=== PATIENT | female | born 1950 | race Caucasian/White ===

== ENCOUNTER → 2021-08-22 12:51 | Outpatient (BNVA) | payer MEDICARE, SELFPAY | PROVIDERS: Visit Provider Emergency Medicine | DX: S69.92XA Unspecified injury of left wrist, hand and finger(s), initial encounter (principal); W19.XXXA Unspecified fall, initial encounter; M19.032 Primary osteoarthritis, left wrist | CPT/HCPCS: 73110 ==

== ENCOUNTER 2024-07-29 14:47 | Outpatient (CLI) | payer MEDICARE, OTHER, SELFPAY | END 2024-07-29 14:48 | disposition home or self-care (01) | LOC: SOT 14:48 | PROVIDERS: PCP Nurse Practitioner Family; Visit Provider Student in an Organized Health Care Education/Training Program | DX: Z46.89 Encounter for fitting and adjustment of other specified devices (principal); S52.021D Displaced fracture of olecranon process without intraarticular extension of right ulna, subsequent encounter for closed fracture with routine healing; W18.39XD Other fall on same level, subsequent encounter | CPT/HCPCS: 97760; L3763 ==

== ENCOUNTER 2024-08-01 12:29 | Day surgery (SDC) | payer MEDICARE, OTHER, SELFPAY ==
[2024-08-01] VITALS (14 sets, daily range): BP systolic 107–143; BP diastolic 63–84; PULSE 72–87; RESP 14–18; TEMP 36.2–36.9; O2SAT 90–99; BMI 38.4
--- NOTE | 2024-08-01 07:27 | XR_ITS ---
WS: [id number] C-ARM RADIOGRAPHS RIGHT ELBOW; 4 IMAGES HISTORY: RT ELBOW ORIF; OR PICS COMPARISON: Radiograph 07/23/2024 Intraoperative pinning and screw fixation of the olecranon fracture which is now in good position and alignment. XR/XR elbow RT 2V 92015 IMPRESSION: ORIF RIGHT olecranon fracture.
--- NOTE | 2024-08-01 13:00 | ECG_ITS ---
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
[2024-08-01] MEDS: acetaminophen 1,000 MG/100 ML PIGGYBACK 400 MG IV (13:32)
[2024-08-01] MEDS: sodium chloride 0.9% 1,000 ML 30 ML IV (13:33)
[2024-08-01] MEDS: ketorolac 30 mg/mL INJ IVP (13:48)
--- NOTE | 2024-08-01 14:13 | SUR.PREOP ---
13:58 RIGHT SUPRA CLAVICULAR NERVE BLOCK PERFORMED BY DOCTOR Urbano, USING 0.5% ROPIVACAINE AND 4mg DECADRON. PT ON MRI CT TECH.TOLERATED PROCEDURE WELL.
--- NOTE | 2024-08-01 14:57 | W.PM.OPSUD ---
Surgery/Procedure H&P Update DATE OF PROCEDURE: August 01, 2024 DATE H&P PERFORMED: 07/29/24 H&P UPDATE INFORMATION: I have reviewed H&P completed within last 30 days, I have examined patient prior to procedure and No changes to prior documentation PREOP DIAGNOSIS: Displaced right olecranon fracture intra-articular PRIMARY INDICATION FOR PROCEDURE: Displaced right olecranon fracture intra-articular PLANNED PROCEDURE: Operation Date: 08/01/24 14:35 Proposed Procedures p ORIF Elbow ORIF Olecranon Fracture(Right) - Yogi Richter DO
--- NOTE | 2024-08-01 16:33 | ANES.PREANE2 ---
Pre-Anesthetic Assessment Height/Weight: Height 1.57 m Weight 95.254 kg Temp Pulse Resp BP Pulse Ox O2 Del Method 98.5 F 73 16 126/72 96 Room Air 08/01/24 12:52 08/01/24 14:20 08/01/24 14:20 08/01/24 14:10 08/01/24 14:20 08/01/24 14:20 Preop Diagnosis: Displaced right olecranon fracture intra-articular Operation Date: 08/01/24 14:35 Proposed Procedures p ORIF Elbow ORIF Olecranon Fracture(Right) - Yogi Rober, Familial anesthetic complications: None Was Beta Vaishali taken within 24 hours: N/A Was Clonidine taken within 24 hours: N/A Last intake: Intake Last Liquid Date 08/01/24 Last Liquid Time 07:50 Last Solid Date 07/31/24 Last Solid Time 19:00 Social No alcohol and No tobacco Exam alert, oriented x 3, clear to auscultation bilaterally and regular rate & rhythm Airway Mallampati: Class II CV/HEM Hypertension Metabolic Hyperlipidemia Anesthetic Plan ASA status: 2 Anesthesia: General and Regional (specify below) Risk of > 500 ml blood loss (7ml/kg in children): No Medications/Allergies Home Medications ?Medication ?Instructions ?Recorded ?Confirmed ?Last Taken ?Type lisinopril 40 mg PO DAILY 08/22/21 08/01/24 07/29/24 History metoprolol 50 mg PO DAILY 08/22/21 08/01/24 08/01/24 History Custom Posterior Long Arm Splint #1 ea 07/29/24 07/29/24 Unknown Rx chlorthalidone 25 mg tablet 25 mg PO DAILY 07/29/24 08/01/24 07/29/24 History meloxicam 15 mg tablet 15 mg PO DAILY 07/29/24 08/01/24 07/29/24 History pravastatin 80 mg tablet 80 mg PO DAILY 07/29/24 08/01/24 07/29/24 History hydrocodone 7.5 mg-acetaminophen 1 tab PO Q6H PRN pain #20 tabs 08/01/24 Unknown Rx 325 mg tablet Allergies Allergy/AdvReac Type Severity Reaction Status Date / Time No Known Allergies Allergy Verified 08/01/24 12:46 Current Medications Generic Name Dose Route Start Last Admin Trade Name Freq PRN Reason Stop Dose Admin Sodium Chloride 1,000 mls @ 30 mls/hr 08/01/24 12:45 08/01/24 13:33 Sodium Chloride 0.9% IV 08/02/24 12:44 30 mls/hr .Q24H KIM Administration PFSH Anesthesia Social History Smoking and tobacco/nicotine status: never used tobacco/nicotine Anesthesia Procedures Nerve Block Nerve Block 1: Main Anesthesia: general anesthesia Time Out Performed: Yes Consent: requested by attending/covering physician, from patient, from other, risks and benefits reviewed and patient agrees to proceed Nerve block location: supraclavicular (R) Anesthesia monitors applied: pulse oximetry, EKG, BP cuff and oxygen Nerve block position: semi sitting Anesthetic Used: ropivicaine 0.5% (30 ml) and with decadron (4 mg) Ultrasound used to: recognize landmarks, visualize and ID brachial plexus and in supraclavicular region Nerve Stimulator Used?: No Interscalene/Femoral BLK: 4 stimuplex 21 g needle used for position and inplane approach, visualize local anesthetic spread and no vascular puncture identified Injection: neg aspiration of heme Patient Tolerated Procedure: well and no complications Complications: none
[2024-08-01] MEDS: ceFAZolin 2,000 MG in sodium chloride 0.9% (plus) 50 ML 100 MG IV (18:10)
--- NOTE | 2024-08-01 20:16 | P.BOP_ITS ---
Date of Procedure: [August 01, 2024] Surgeon: [Dr. Richter DO] Industrial Engineering Professor(s): [Florencio Richter PA-C] Procedure(s) performed: [Right olecranon open reduction and internal fixation] Findings of the procedure(s): [Right olecranon displaced fracture. procedure went well and as planned. Estimated blood loss: [10 ml] Specimen(s) removed: [n/a] Post-operative diagnosis: [Right olecranon displaced fracture]
--- NOTE | 2024-08-01 20:22 | PM.PACU ---
PACU note Narrative: Patient is a 74-year-old female just underwent a right elbow olecranon ORIF. Patient transferred to PACU in stable condition. Pain is well controlled. shoulder Dressing on , dry and in place. Patient's operative arm is in a shoulder sling and splint. Patient is awake and alert and able to respond to my questions accordingly. Patient's fingers are warm with good perfusion. Patient can wiggle fingers. normal cap refill under 2 seconds. . Unable to perform any further assessment of sensory motor function due to residual block. Exam: awake Disposition: discharged
--- NOTE | 2024-08-01 20:27 | P.OP_ITS ---
Operative Report Date of procedure: August 01, 2024 Pre-op diagnosis: Right elbow olecranon fracture displaced, intra-articular Post-op diagnosis: Same Post-op findings: See operative report narrative Procedure done: Right elbow olecranon fracture open reduction internal fixation Implants: [place] olecranon plate 3 hole anatomic right Combination of 3.5 locking and nonlocking screws Arthrex #2 FiberWire Surgeon: Yogi Richter DO [employer] Clerk: Florencio Richter PA-C: PA was necessary for assistance in this case with arm positioning to execute the procedure, retraction and protection of neurovascular structures, assistance with fracture reduction holding reduction as well as fracture fixation as well as to assist with wound closure and dressing and splint application. Anesthesia: General Estimated blood loss: 10 mL 39 minutes IV fluids: 1300 mL Urine output: None Complications: None Findings: See op note Condition: stable Disposition: same day Brief History: Patient is a 74-year-old female who sustained a fall directly onto her right elbow. She has a displaced right elbow olecranon process fracture. This is intra-articular in nature and displaced given the tricep attachments to this. We talked about her options moving forward as far as continued nonoperative versus operative invention. This point time she does have a small abrasion which she treated conservatively with just daily Vaseline gauze changes she has been in a posterior long-arm splint. At this point in time for goals of earlier mobilization as well as anatomic fixation and joint reduction patient through shared decision-making elects proceed with surgical intervention. All questions have been answered at this time. We detailed the ins and outs procedure the risk benefits complication alternatives of surgery and through shared decision making patient like to proceed with surgical intervention for a right elbow olecranon fracture open reduction internal fixation. All questions answered at this time. Consent was reviewed and signed with patient in the preop area. Procedure: Patient seen eval in the preoperative holding area. Consent was reviewed and signed with patient. Correct extremity was then subsequently marked. Patient had healed the abrasion over the elbow and this will not be incorporated into patient's preplanned incision site. At this point in time patient was seen evaluated by anesthesia patient subsequently underwent a right upper extremity nerve regional block per the anesthesia apartment once cleared for surgery patient was taken back to the operative suite. Patient was then brought to the OR and placed on hospital bed in supine position all bony problems well-padded patient with pelvis secured to the bed patient then subsequently underwent anesthesia per the anesthesia apartment. Once properly anesthetized the patient was placed into a lateral decubitus position with beanbag positioner. We had a sterile bump that was going to be placed over the patient's chest and draped the right arm over. We utilized an armboard for the left arm and axillary roll was placed patient was appropriately secured to the bed. Once we had satisfactory position the bed was turned 90 degrees and we confirmed we had good x-ray images and visualization of the olecranon fracture. At this point in time a nonsterile tourniquet was applied to the right upper arm. The right upper extremity is then prepped and draped standard orthopedic fashion. Final timeout performed. Patient received appropriate preoperative antibiotics. Esmarch tourniquet was used exsanguinate right upper extremity tourniquet was insufflated to 250 mmHg. A curvilinear incision was made centering over the fracture site curving around the just the medial aspect of the tip of the olecranon as well as to curve away from patient's dorsal and radial abrasion she originally had this now well- healed. Incision was made through skin and subcutaneous tissue switched to lightly dissection scissors and then maintained exact hemostasis throughout. I mobilized and created full-thickness skin flaps came down directly over the olecranon the fracture site. At this point in time I subsequently utilized a blunt periosteal elevator to mobilize the preplanned site for the olecranon plate this was directly and a smaller piece of olecranon process. As a result there was not significant comminution throughout the rest of the proximal ulna. At this point in time came down directly over the fracture site and its triceps attachment to this. I utilized curette rongeur as well as sharp scalpel excision to debride out the fracture site and evacuated of all fracture hematoma and debris. I then subsequently open book the fracture site and irrigated out the joint. Small piece of loose body was subsequently removed. At this point in time I then subsequently utilized a sharp scalpel incision and then split the tricep tendon and peeled this off the periosteum just enough to allow the plate the rest of the triceps was all left intact plan was to utilize suture augmentation to increase the construct strength. At this point in time I then subsequently utilized an Arthrex #2 FiberWire suture and whipstitch this proximally and then subsequently distal with 2 limbs coming out. This now allowed for control of my fracture fragment as well as to be tied into the p late. I then subsequently selected a Counselor anatomic right olecranon plate 3 hole. This had good positioning as well as for fixation proximal and distal. At this point in time I utilized a dental pick maintain reduction with arm positioning and a dental pack I then placed a K wire across the fracture site to hold reduction and then once this was completed I then brought in the olecranon plate that I had selected this was then secured up against the bone I subsequently drilled and placed a locking screw on the proximal fracture fragment and then while plate was locked to this fragment subsequently drilled eccentrically and had compression in the oblong hole and subsequently drilled measured and placed a 3.5 mm cortical screw distally which then compressed the plate to bone as well as compressed fracture site at this point time I brought in fluoroscopic imaging to confirm appropriate plate placement fracture reduction and satisfactory screw lengths. At this point in time I then subs equently placed a homerun locking screw which also was drilled measured appropriate length locking screw was then placed down the intramedullary olecranon shaft traversing across fracture site. I then subsequently placed additional locking and nonlocking screws throughout the construct both proximally and distally which increase construct strength. I then subsequently passed the suture through the suture eyelets of the plate and then subsequently tied the tricep tendon down directly over the plate and had excellent fixation. At this point in time I then took the elbow through range of motion which had smooth elbow range of motion no catching or clicking noted and then subsequently brought in fluoroscopic imaging for final x-ray images which showed satisfactory reduction and congruency of the olecranon process fracture with stable fixation elbow was taken through range of motion and hardware was stable with stable fracture reduction and fixation. This completed my construct tourniquet was deflated hemostasis was satisfactory thorough irrigation performed. I then subsequently closed in layered fashion of 0 Vicryl suture to again reapproximate the triceps tendon as well as the deep periosteal tissue over the olecranon plate and then subsequently closed 2-0 Vicryl suture and kwaku for the skin. I then placed Xeroform over the incision site this was then placed with 4 x 4's ABDs Curlex and a soft roll and a bulky posterior long-arm splint was then applied. Patient was then placed in a sling. Patient was then awakened from anesthesia taken recovery in stable condition. Disposition: Patient taken recovery in stable condition, will receive appropriate discharge instruction as well as pain medication postoperatively. Will follow-up in orthopedic office in 2 weeks. Patient and family understand agree with current plan. All questions answered. Nonweightbearing to the right upper extremity as well as maintain splint until follow-up with no active range of motion of the elbow. All questions answered.
--- NOTE | 2024-08-01 21:45 | ANE.PACU2 ---
Inpatient post-anesthesia follow up: Airway intact: Yes Vital signs: Temperature 97.9 F Pulse Rate 87 Respiratory Rate 16 Blood Pressure 125/71 Pulse Oximetry 94 Oxygen Delivery Me thod Room Air Oxygen Flow Rate 4 Fraction of Inspir ed Oxygen Hydration adequate: Yes Nausea and vomiting: No Pain level: 1 Mental status: Baseline
--- NOTE | 2024-08-03 16:09 | XR_ITS ---
WS: [id number] C-ARM RADIOGRAPHS RIGHT ELBOW; 4 IMAGES HISTORY: RT ELBOW ORIF; OR PICS COMPARISON: Radiograph 07/23/2024 Intraoperative pinning and screw fixation of the olecranon fracture which is now in good position and alignment.
== END 2024-08-01 21:45 | disposition home or self-care (01) ==
PROVIDERS: PCP Nurse Practitioner Family; Visit Provider Student in an Organized Health Care Education/Training Program
PROC: (CPT 24685; principal; 2024-08-01 14:25)
DX: S52.031A Displaced fracture of olecranon process with intraarticular extension of right ulna, initial encounter for closed fracture (principal); E78.5 Hyperlipidemia, unspecified; I10 Essential (primary) hypertension; Z79.899 Other long term (current) drug therapy
CPT/HCPCS: 24685; 73070; 76000; 93005; C1713; J0131; J0690; J1100; J1885; J2405; J2704; J2795; J3010; J3490; J7030; J9999

== ENCOUNTER → 2024-08-14 07:55 | Outpatient (BNVA) | payer MEDICARE, SELFPAY | PROVIDERS: PCP Nurse Practitioner Family; Visit Provider Physician Assistant | DX: S52.031D Displaced fracture of olecranon process with intraarticular extension of right ulna, subsequent encounter for closed fracture with routine healing (principal); X58.XXXD Exposure to other specified factors, subsequent encounter; Z98.890 Other specified postprocedural states | CPT/HCPCS: 73080; 99024 ==

== ENCOUNTER 2024-08-26 05:00 | Outpatient (RCR) | payer MEDICARE, OTHER, SELFPAY | END 2024-09-25 23:59 | disposition home or self-care (01) | LOC: SOT 05:00 | PROVIDERS: Visit Provider Physician Assistant | DX: S52.031A Displaced fracture of olecranon process with intraarticular extension of right ulna, initial encounter for closed fracture (principal); X58.XXXA Exposure to other specified factors, initial encounter | CPT/HCPCS: 97110; 97165 ==

== ENCOUNTER → 2024-08-27 08:36 | Outpatient (BNVA) | payer MEDICARE, SELFPAY | PROVIDERS: PCP Nurse Practitioner Family; Visit Provider Physician Assistant | DX: Z98.890 Other specified postprocedural states (principal); S52.031D Displaced fracture of olecranon process with intraarticular extension of right ulna, subsequent encounter for closed fracture with routine healing; X58.XXXD Exposure to other specified factors, subsequent encounter | CPT/HCPCS: 73080; 99024 ==

== ENCOUNTER → 2024-09-10 09:03 | Outpatient (BNVA) | payer MEDICARE, SELFPAY | PROVIDERS: PCP Nurse Practitioner Family; Visit Provider Physician Assistant | DX: Z98.890 Other specified postprocedural states (principal); S52.031A Displaced fracture of olecranon process with intraarticular extension of right ulna, initial encounter for closed fracture; S52.031D Displaced fracture of olecranon process with intraarticular extension of right ulna, subsequent encounter for closed fracture with routine healing; X58.XXXD Exposure to other specified factors, subsequent encounter | CPT/HCPCS: 73080; 99024 ==

== ENCOUNTER 2024-09-26 05:00 | Outpatient (RCR) | payer MEDICARE, OTHER, SELFPAY | END 2024-10-26 23:59 | disposition home or self-care (01) | LOC: SOT 05:00 | PROVIDERS: Visit Provider Physician Assistant | DX: S52.031A Displaced fracture of olecranon process with intraarticular extension of right ulna, initial encounter for closed fracture (principal); X58.XXXA Exposure to other specified factors, initial encounter | CPT/HCPCS: 97022; 97110 ==

== ENCOUNTER → 2024-10-22 09:44 | Outpatient (BNVA) | payer MEDICARE, OTHER, SELFPAY | PROVIDERS: Visit Provider Physician Assistant | DX: Z98.890 Other specified postprocedural states (principal); Z87.81 Personal history of (healed) traumatic fracture | CPT/HCPCS: 73080; 99024 ==